=== PATIENT | female | born 1970 | race African-American/Black ===

== ENCOUNTER 2016-12-01 10:00 | Emergency (ER) | payer OTHER ==
[~2016-12-01] VITALS: Ht 165.1 cm; Wt 91.2 kg
[~2016-12-01 10:00] MED LIST: HYDROCHLOROTHIA25 M1 PO; HYDROCHLOROTHIA25 M2 PO; NAPROSYN500 MG PO; NORFLEX100 MG PO; PRINIVIL10 MG PO; ZESTRIL10 MG PO
[2016-12-01 10:01] VITALS: BP 161/80
== END 2016-12-01 10:44 | disposition home or self-care (01) ==
LOC: ER 10:00
DX: R10.2 Pelvic and perineal pain (principal); I10 Essential (primary) hypertension

== ENCOUNTER 2016-12-13 13:15 | Emergency (ER) | payer OTHER ==
[~2016-12-13] VITALS: Ht 165.1 cm; Wt 95.3 kg
[2016-12-13] MEDS ORDERED: HYDROCHLOROTHIA25 M2 PO (14:33)
[2016-12-13 14:51] VITALS: BP 142/68
== END 2016-12-13 14:54 | disposition home or self-care (01) ==
LOC: ER 13:15
DX: Z76.0 Encounter for issue of repeat prescription (principal); I10 Essential (primary) hypertension

== ENCOUNTER → 2019-02-11 | Outpatient (CLI) | payer BC, OTHER | LOC: RAD 10:25 | DX: Z12.31 Encounter for screening mammogram for malignant neoplasm of breast (principal) ==